=== PATIENT | female | born 1980 | race Caucasian/White ===

== ENCOUNTER 2018-09-18 10:46 | Observation (INO) | payer BC, OTHER ==
--- NOTE | 2018-09-18 11:56 | ED PDOC ---
HPI: Headache Time Seen by Provider: 09/18/18 11:32 Chief Complaint (Nursing): Headache Chief Complaint (Provider): ROMERO History Per: Patient History/Exam Limitations: no limitations Additional Complaint(s): Pt states she was at gym doing squats when she felt sudden onset back of head 2 days ago, improved after time, took Excedrin with some relief. Today went to gym again and ROMERO returned. Pain associated with photophobia and nausea. Denies fever, neck stiffness, vomiting, similar sxs in past. - Risk Factors SAH Risk Factors: Pos: Sudden Onset Of Pain, Worst Headache Of Life Past Medical History Reviewed: Nursing Documentation, Vital Signs Vital Signs: Last Vital Signs Temp 98.1 F 09/18/18 11:44 Pulse 65 09/18/18 11:44 Resp 18 09/18/18 11:44 BP 173/93 H 09/18/18 11:44 Pulse Ox 100 09/18/18 11:44 - Medical History PMH: No Chronic Diseases Denies: Chronic Kidney Disease - Surgical History Surgical History: No Surg Hx - Family History Family History: States: Unknown Family Hx - Living Arrangements Living Arrangements: With Family - Social History Current smoker - smoking cessation education provided: No Alcohol: None - Home Medications Home Medications: Ambulatory Orders Medication Instructions Recorded Acetaminophen/Oxycodone Hydr 1 tab PO Q6 PRN #24 tab 08/07/14 [Percocet 325 mg-5 mg] Ondansetron ODT [Zofran ODT] 4 mg PO 12 PRN #12 odt 08/07/14 Acetaminophen/Oxycodone Hydr 1 tab PO TID PRN #12 tab 09/17/14 [Percocet 325 mg-5 mg] Naproxen [Naprosyn] 500 mg PO BID PRN #10 tab 09/17/14 - Allergies Allergies/Adverse Reactions: Allergies Allergy/AdvReac Type Severity Reaction Status Date / Time No Known Allergies Allergy Verified 08/06/14 20:45 Review of Systems Constitutional: Negative for: Fever, Chills Eyes: Negative for: Vision Change Cardiovascular: Negative for: Chest Pain Respiratory: Negative for: Cough, Shortness of Breath Gastrointestinal: Positive for: Nausea. Negative for: Vomiting, Abdominal Pain, Diarrhea Musculoskeletal: Negative for: Neck Pain, Back Pain Skin: Negative for: Rash, Lesions Neurological: Positive for: Headache. Negative for: Weakness, Numbness, Incoordination, Change in Speech, Confusion, Seizures, Altered Mental Status, Dizziness Physical Exam - Reviewed Nursing Documentation Reviewed: Yes Vital Signs Reviewed: Yes - Physical Exam Appears: Positive for: Uncomfortable Head Exam: Positive for: ATRAUMATIC, NORMAL INSPECTION Skin: Positive for: Normal Color, Warm, Dry Eye Exam: Positive for: Normal appearance, EOMI, PERRL Neck: Positive for: Normal, Painless ROM, Supple Respiratory: Positive for: Normal Breath Sounds Neurologic/Psych: Positive for: Alert, consumer marketing analyst II-XII, Oriented. Negative for: Motor/Sensory Deficits, Aphasia, Facial Droop - Laboratory Results Result Diagrams: 09/18/18 12:00 09/18/18 12:00 - ECG O2 Sat by Pulse Oximetry: 100 Pulse Ox Interpretation: Normal - Progress Re-evaluation Time: 14:39 Condition: Improving,but remains with symptoms - Physician Consult Information Time Consulting Physican Contacted: 14:40 Physician Contacted: Adan Butcher Outcome Of Conversation: Recommends placing in observation, Depakote 1000 mg and Imitrex 80 mg, will consult. Medical Decision Making Medical Decision Makin yo female with ROMERO. - labs - CT head - CTA head/neck - Morphine - Zofran Accession No. 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 HISTORY: ROMERO COMPARISON: None available. TECHNIQUE: Axial computed tomography images were obtained through the head/brain without intravenous contrast. Radiation dose: Total exam DLP = 944.47 mGy-cm. This CT exam was performed using one or more of the following dose reduction techniques: Automated exposure control, adjustment of the mA and/or kV according to patient size, and/or use of iterative reconstruction technique. FINDINGS: HEMORRHAGE: No intracranial hemorrhage. BRAIN: No mass effect or edema. No atrophy or chronic microvascular ischemic changes.Please note that MRI with diffusion imaging is more sensitive in the detection of acute ischemic event. VENTRICLES: No hydrocephalus. CALVARIUM: Unremarkable. PARANASAL SINUSES: Unremarkable as visualized. No significant inflammatory changes. MASTOID AIR CELLS: Unremarkable as visualized. No inflammatory changes. OTHER FINDINGS: None. IMPRESSION: No acute intracranial pathology identified. Accession No. : [id number] Patient Name / ID : NELDA RAMOS / [id number] Exam Date : 09/18/2018 13:07:18 ( Approved ) Study Comment : Sex / Age : F / 37Y Creator : Lexx Cruz MD Dictator : Lexx Cruz MD Teacher Public Health : Account Executive [employer] : Lexx Cruz MD Approver2 : Report Date : 09/18/2018 14:24:13 My Comment : Date of service: 09/18/2018 PROCEDURE: CT Angiography of the Brain and Neck. HISTORY: Sudden ROMERO while at gym COMPARISON: None available. TECHNIQUE: CT angiography of the intracranial and neck arteries was performed. Coronal and sagittal maximum intensity projection reformatted images were generated. Contrast Dose: Visipaque 320, 99 cc Radiation dose: Total exam DLP = 304.11 mGy-cm. This CT exam was performed using one or more of the following dose reduction techniques: Automated exposure control, adjustment of the mA and/or kV according to patient size, and/or use of iterative reconstruction technique. FINDINGS: INTERNAL CEREBRAL ARTERIES: Unremarkable. The skull base, petrous, cavernous and supraclinoid segments are bilaterally widely patent. ANTERIOR CEREBRAL ARTERIES: Unremarkable. A1 and A2 segments are widely patent. Smaller distal branches unremarkable, as visualized. MIDDLE CEREBRAL ARTERIES: Unremarkable. M1 and M2 segments are widely patent. Perisylvian branches grossly symmetric. POSTERIOR CIRCULATION: Basilar Artery: Unremarkable. Distal Vertebral Arteries: Codominant vertebrobasilar circulation. Posterior Cerebral Arteries: Widely patent right BATTERY ASSEMBLER DRY CELL identified. Hypoplastic left P1 BATTERY ASSEMBLER DRY CELL segment. Posterior Inferior Cerebellar Arteries: Unremarkable. NECK CTA: Common Carotid arteries: The bilateral common carotid appear widely patent from their origins to their bifurcations with no significant stenosis appreciated. No evidence to suggest common carotid artery dissection. Internal Carotid arteries: No significant stenosis is appreciated throughout the cervical internal carotid artery segments bilaterally and there is no evidence of dissection either. External Carotid arteries: Appear unremarkable bilaterally. Vertebral arteries: The bilateral vertebral arteries appear normal in caliber from their origins to their distal cervical segments. No significant stenosis or definite pattern of dissection. ANEURYSM/ VASCULAR MALFORMATIONS: None appreciated. OTHER FINDINGS: None. IMPRESSION: Unremarkable CT Angiography of the Neck. Hypoplastic P1 segment left BATTERY ASSEMBLER DRY CELL with remainder of intracranial CT angiogram unremarkable. No interval malformation or aneurysm appreciable. 14:[address] Raymundo, recommends MRI with and without contrast. Disposition - Clinical Impression Clinical Impression: Intractable headache - Patient ED Disposition Is Patient to be Admitted: Yes - Disposition Disposition Time: 14:42 Condition: STABLE Forms: CareInformative (Macedonian) - Pt Status Changed To: Hospital Disposition Of: Observation - POA Present On Arrival: None
[2018-09-18 12:13] LABS: PROTHROMBIN TIME 11.3 Seconds (9.8-13.1)
[2018-09-18 12:16] LABS: BASO % 0.7 % (0.0-2.0); EOS # 0.1 K/uL (0.0-0.7); EOS % 1.6 % (0.0-4.0); HEMOGLOBIN 13.9 g/dL (12.0-16.0); LYMPH # 1.5 K/uL (1.0-4.3); LYMPH % 23.3 % (20.0-40.0); MEAN CELL VOLUME 91.3 fl (81.0-99.0); MEAN CORPUSCULAR HEMOGLOBIN 31.2 pg (27.0-31.0); MEAN CORPUSCULAR HGB CONC 34.2 g/dL (33.0-37.0); MEAN PLATELET VOLUME 8.6 fl (7.2-11.7); MONO # 0.4 K/uL (0.0-0.8); MONO % 5.9 % (0.0-10.0); NEUT # 4.5 K/uL (1.8-7.0); NEUT % 68.5 % (50.0-75.0); NRBC % 0.1 % (0.0-0.0); PARTIAL THROMBOPLASTIN TIME 33.8 Seconds (25.6-37.1); RBC 4.45 Mil/uL (3.80-5.20); WHITE BLOOD COUNT 6.6 K/uL (4.8-10.8)
[2018-09-18 12:19] LABS: ALB/GLOB RATIO 1.4 (1.0-2.1); ALBUMIN 4.4 g/dL (3.5-5.0); ALT/SGPT 39 U/L (9-52); AST/SGOT 29 U/L (14-36); BLOOD UREA NITROGEN 18 mg/dl (7-17); CALCIUM 9.4 mg/dL (8.4-10.2); GFR NON-AFRICAN AMERICAN > 60
[2018-09-18 12:35] LABS: SQUAMOUS EPITHIAL 3 /hpf (0-5); URINE BACTERIA RARE (<OCC); URINE BILIRUBIN NEGATIVE (NEGATIVE); URINE BLOOD NEGATIVE (NEGATIVE); URINE CLARITY CLEAR (Clear); URINE COLOR STRAW (YELLOW); URINE GLUCOSE (UA) NEG (Normal); URINE LEUKOCYTE ESTERASE MOD Leu/uL (Negative); URINE PROTEIN NEGATIVE (NEGATIVE); URINE UROBILINOGEN 0.2-1.0 mg/dL (0.2-1.0)
[2018-09-18] MEDS ORDERED: Iodixanol 320 MG/ML 100 ML BOTTLE IV ONE (12:50)
[2018-09-18] MEDS ORDERED: Sodium Chloride 0.9% 50 ML IV ONE (12:50)
--- NOTE | 2018-09-18 14:04 | CT ---
Date of service: 09/18/2018 PROCEDURE: CT HEAD WITHOUT CONTRAST. HISTORY: ROMERO COMPARISON: None available. TECHNIQUE: Axial computed tomography images were obtained through the head/brain without intravenous contrast. Radiation dose: Total exam DLP = 944.47 mGy-cm. This CT exam was performed using one or more of the following dose reduction techniques: Automated exposure control, adjustment of the mA and/or kV according to patient size, and/or use of iterative reconstruction technique. FINDINGS: HEMORRHAGE: No intracranial hemorrhage. BRAIN: No mass effect or edema. No atrophy or chronic microvascular ischemic changes.Please note that MRI with diffusion imaging is more sensitive in the detection of acute ischemic event. VENTRICLES: No hydrocephalus. CALVARIUM: Unremarkable. PARANASAL SINUSES: Unremarkable as visualized. No significant inflammatory changes. MASTOID AIR CELLS: Unremarkable as visualized. No inflammatory changes. OTHER FINDINGS: None. IMPRESSION: No acute intracranial pathology identified.
--- NOTE | 2018-09-18 14:28 | CT ---
Date of service: 09/18/2018 PROCEDURE: CT Angiography of the Brain and Neck. HISTORY: Sudden ROMERO while at gym COMPARISON: None available. TECHNIQUE: CT angiography of the intracranial and neck arteries was performed. Coronal and sagittal maximum intensity projection reformatted images were generated. Contrast Dose: Visipaque 320, 99 cc Radiation dose: Total exam DLP = 304.11 mGy-cm. This CT exam was performed using one or more of the following dose reduction techniques: Automated exposure control, adjustment of the mA and/or kV according to patient size, and/or use of iterative reconstruction technique. FINDINGS: INTERNAL CEREBRAL ARTERIES: Unremarkable. The skull base, petrous, cavernous and supraclinoid segments are bilaterally widely patent. ANTERIOR CEREBRAL ARTERIES: Unremarkable. A1 and A2 segments are widely patent. Smaller distal branches unremarkable, as visualized. MIDDLE CEREBRAL ARTERIES: Unremarkable. M1 and M2 segments are widely patent. Perisylvian branches grossly symmetric. POSTERIOR CIRCULATION: Basilar Artery: Unremarkable. Distal Vertebral Arteries: Codominant vertebrobasilar circulation. Posterior Cerebral Arteries: Widely patent right COMPLEX HUMAN RESOURCES MANAGER identified. Hypoplastic left P1 COMPLEX HUMAN RESOURCES MANAGER segment. Posterior Inferior Cerebellar Arteries: Unremarkable. NECK CTA: Common Carotid arteries: The bilateral common carotid appear widely patent from their origins to their bifurcations with no significant stenosis appreciated. No evidence to suggest common carotid artery dissection. Internal Carotid arteries: No significant stenosis is appreciated throughout the cervical internal carotid artery segments bilaterally and there is no evidence of dissection either. External Carotid arteries: Appear unremarkable bilaterally. Vertebral arteries: The bilateral vertebral arteries appear normal in caliber from their origins to their distal cervical segments. No significant stenosis or definite pattern of dissection. ANEURYSM/ VASCULAR MALFORMATIONS: None appreciated. OTHER FINDINGS: None. IMPRESSION: Unremarkable CT Angiography of the Neck. Hypoplastic P1 segment left COMPLEX HUMAN RESOURCES MANAGER with remainder of intracranial CT angiogram unremarkable. No interval malformation or aneurysm appreciable.
[2018-09-18] MEDS ORDERED: Valproate 1,000 MG in Sodium Chloride 0.9% 100 ML IVPB STA (14:45)
[2018-09-18] MEDS ORDERED: Gadodiamide 287 MG/ML VIAL (15ML) IV ONE (14:58)
--- NOTE | 2018-09-18 17:42 | MRI ---
Date of service: 09/18/2018 PROCEDURE: MRI BRAIN WITH AND WITHOUT CONTRAST HISTORY: Intractable ROMERO COMPARISON: None available. TECHNIQUE: Multiplanar, multisequence MR images of the brain were obtained with and without intravenous contrast enhancement. FINDINGS: HEMORRHAGE: None DWI: No evidence of an acute or early subacute infarction. BRAIN PARENCHYMA: No mass,mass effect or edema. Mild volume loss is noted. ENHANCEMENT: No abnormal intracranial enhancement. VENTRICLES: The lateral ventricles especially the occipital horn are mildly dilated. CRANIUM: Unremarkable. ORBITS: Grossly unremarkable. PARANASAL SINUSES/MASTOIDS: Clear VASCULAR SYSTEM: Skull base flow voids intact. OTHER FINDINGS: None . IMPRESSION: No evidence of acute pathology in the brain. No evidence of intracranial hemorrhage or enhancing mass lesion. Mild volume loss and mildly dilated lateral ventricles.
[2018-09-18] MEDS ORDERED: Dexamethasone 10 MG in Sodium Chloride 0.9% 50 ML IVPB SCH (20:00)
--- NOTE | 2018-09-18 20:57 | CP.PCM.HP ---
History of Present Illness - History of Present Illness History of Present Illness: 37 y/oF, PMHx Migraine 10 yrs ago, no other chronic medical condition, [facility] sudden onset of Headache on DOA with no relief. As per Pt, While at the gym on 09/16/18, onset of headache started but was relief with Advil, today 09/18/18, while at the gym, she felt that sudden onset of headache returned, worsening than last time, described as constant, pressure/tightness/stabbing type, severe intensity 7-9:10 with no relief, no associated to neck pain , notrauma. Worsening symptoms: Nausea, photophobia. Aggravated factor: Changing positions. Pt denied: Fever, chills, neck pain, vision change, numbness, vomiting, diarrhea, urinary symptoms, CP, dizziness, syncope, SOB, cough, sick contact. Head CT: Unremarkable. Head/Neck CT: Unremarkable. Brain MRI: Mild volume loss and mildly dilated lateral ventricles, otherwise unremarkable. Present on Admission - Present on Admission Any Indicators Present on Admission: No Review of Systems - Constitutional Constitutional: Headache - EENT Eyes: Other (negative) Ears: Other (negative) Nose/Mouth/Throat: Other (negative) - Cardiovascular Cardiovascular: Other (negative) - Respiratory Respiratory: Other (negative) - Gastrointestinal Gastrointestinal: Nausea - Genitourinary Genitourinary: Other (negative) - Musculoskeletal Musculoskeletal: Other (negative) - Integumentary Integumentary: Other (negative) - Neurological Neurological: Headaches (negative) - Psychiatric Psychiatric: Other (negative) - Endocrine Endocrine: Other (negative) - Hematologic/Lymphatic Hematologic: Other (negative) Past Patient History - Past Medical History & Family History Past Medical History?: No Pertinent Family History: Unknown - Past Social History Smoking Status: Never Smoked Alcohol: None Drugs: Denies Home Situation {Lives}: With Family - CARDIAC Hx Cardiac Disorders: No - PULMONARY Hx Respiratory Disorders: No - NEUROLOGICAL Hx Neurological Disorder: Yes Hx Migraine: Yes - HEENT Hx HEENT Problems: No - RENAL Hx Chronic Kidney Disease: No - ENDOCRINE/METABOLIC Hx Endocrine Disorders: No - HEMATOLOGICAL/ONCOLOGICAL Hx Blood Disorders: No Hx AIDS: No Hx Human Immunodeficiency Virus (HIV): No - INTEGUMENTARY Hx Dermatological Problems: No - MUSCULOSKELETAL/RHEUMATOLOGICAL Hx Musculoskeletal Disorders: No Hx Falls: No - GASTROINTESTINAL Hx Gastrointestinal Disorders: No - GENITOURINARY/GYNECOLOGICAL Hx Genitourinary Disorders: No - PSYCHIATRIC Hx Psychophysiologic Disorder: No Hx Substance Use: No - SURGICAL HISTORY Hx Surgeries: Yes Hx Orthopedic Surgery: Yes (right labrum repair 2.5 years ago) Other/Comment: lt. hip sx. 08/24/2014 - ANESTHESIA Hx Anesthesia: Yes Hx Anesthesia Reactions: No Hx Malignant Hyperthermia: No Has any member of the family had a problem w/ anesthesia?: No Meds Allergies/Adverse Reactions: Allergies Allergy/AdvReac Type Severity Reaction Status Date / Time No Known Allergies Allergy Verified 08/06/14 20:45 Physical Exam - Constitutional Appears: No Acute Distress - Head Exam Additional comments: Occipital tenderness - Eye Exam Eye Exam: PERRL - ENT Exam ENT Exam: Normal Exam - Neck Exam Neck exam: Positive for: Tenderness - Respiratory Exam Respiratory Exam: Clear to Auscultation Bilateral - Cardiovascular Exam Cardiovascular Exam: REGULAR RHYTHM - GI/Abdominal Exam GI & Abdominal Exam: Normal Bowel Sounds, Soft - Extremities Exam Extremities exam: Positive for: normal inspection - Back Exam Back exam: NORMAL INSPECTION - Neurological Exam Neurological exam: Alert, Oriented x3 Additional comments: No motor/sensory deficit. - Psychiatric Exam Psychiatric exam: Anxious - Skin Skin Exam: Normal Color, Warm Results - Vital Signs Recent Vital Signs: Last Vital Signs Temp 98.1 F 09/18/18 11:44 Pulse 53 L 09/18/18 18:02 Resp 16 09/18/18 18:02 BP 138/81 09/18/18 18:02 Pulse Ox 98 09/18/18 18:05 reviewed Fatimah - Labs Result Diagrams: 09/20/18 07:30 09/19/18 06:00 Labs: Laboratory Results - last 24 hr 09/18/18 09/18/18 09/18/18 12:00 12:00 12:00 WBC 6.6 RBC 4.45 Hgb 13.9 Hct 40.6 MCV 91.3 MCH 31.2 H MCHC 34.2 RDW 13.0 Plt Count 282 MPV 8.6 Neut % (Auto) 68.5 Lymph % (Auto) 23.3 [place] % (Auto) 5.9 Eos % (Auto) 1.6 Baso % (Auto) 0.7 Neut # (Auto) 4.5 Lymph # (Auto) 1.5 [place] # (Auto) 0.4 Eos # (Auto) 0.1 Baso # (Auto) 0.0 PT 11.3 INR 1.0 APTT 33.8 Sodium 141 Potassium 4.2 Chloride 105 Carbon Dioxide 27 Anion Gap 13 BUN 18 H Creatinine 0.6 L Est GFR ( Amer) > 60 Est GFR (Non-Af Amer) > 60 Random Glucose 97 Calcium 9.4 Total Bilirubin 0.4 AST 29 ALT 39 Alkaline Phosphatase 50 Total Protein 7.6 Albumin 4.4 Globulin 3.2 Albumin/Globulin Ratio 1.4 Urine Color Urine Clarity Urine pH Ur Specific [place] Urine Protein Urine Glucose (UA) Urine Ketones Urine Blood Urine Nitrate Urine Bilirubin Urine Urobilinogen Ur Leukocyte Esterase Urine RBC (Auto) Urine Microscopic WBC Ur Squamous Epith Cells Urine Bacteria 09/18/18 12:22 WBC RBC Hgb Hct MCV MCH MCHC RDW Plt Count MPV Neut % (Auto) Lymph % (Auto) [place] % (Auto) Eos % (Auto) Baso % (Auto) Neut # (Auto) Lymph # (Auto) [place] # (Auto) Eos # (Auto) Baso # (Auto) PT INR APTT Sodium Potassium Chloride Carbon Dioxide Anion Gap BUN Creatinine Est GFR ( Amer) Est GFR (Non-Af Amer) Random Glucose Calcium Total Bilirubin AST ALT Alkaline Phosphatase Total Protein Albumin Globulin Albumin/Globulin Ratio Urine Color Straw Urine Clarity Clear Urine pH 7.0 Ur Specific [place] 1.006 Urine Protein Negative Urine Glucose (UA) Neg Urine Ketones Negative Urine Blood Negative Urine Nitrate Negative Urine Bilirubin Negative Urine Urobilinogen 0.2-1.0 Ur Leukocyte Esterase Mod Urine RBC (Auto) 1 Urine Microscopic WBC 3 Ur Squamous Epith Cells 3 Urine Bacteria Rare reviewed J.P. - Impressions Impression: Head/Neck CT: Reviewed J.P. - Imaging and Cardiology CT scan - head Status: Report reviewed by me (Fatimah) MRI - head Status: Report reviewed by me (Fatimah) Assessment & Plan (1) Intractable headache Status: Acute (2) Cervical pain Status: Acute - Assessment and Plan (Free Text) Plan: Sed Rate, VANESSA, REMA, EKG, continue Morphine, Zofran, Neurology consult. - Date & Time Date: 09/18/18 Time: 19:30
[2018-09-19 06:52] LABS: ALB/GLOB RATIO 1.4 (1.0-2.1); ALBUMIN 4.3 g/dL (3.5-5.0); ALT/SGPT 33 U/L (9-52); AST/SGOT 26 U/L (14-36); BLOOD UREA NITROGEN 20 mg/dl (7-17); CALCIUM 9.5 mg/dL (8.4-10.2); GFR NON-AFRICAN AMERICAN > 60; HDL CHOLESTEROL 80 MG/DL (30-70)
[2018-09-19 06:58] LABS: T4 6.93 ug/dl (5.5-11.0)
[2018-09-19 07:02] LABS: LDL CHOLESTEROL 132 mg/dL (0-129)
--- NOTE | 2018-09-19 11:15 | CARD ---
APPROVED REPORT Date of service: 09/19/2018 EKG Measurement Heart [id number] <Conclusion> Normal sinus rhythm Normal ECG
--- NOTE | 2018-09-19 17:15 | CP.PCM.PN ---
Subjective - Date & Time of Evaluation Date of Evaluation: 09/19/18 Time of Evaluation: 12:50 - Subjective Subjective: F/U Headache vomited earlier,headache improved , no photophoia Objective - Vital Signs/Intake and Output Vital Signs (last 24 hours): Temp Pulse Resp BP Pulse Ox 99.6 F 76 20 107/61 98 09/19/18 12:20 09/19/18 12:20 09/19/18 12:20 09/19/18 08:20 09/19/18 12:20 - Medications Medications: Current Medications Hydromorphone HCl (Dilaudid) 1 mg IVP Q4 PRN PRN Reason: Pain, moderate (4-7) Morphine Sulfate (Morphine) 2 mg IVP Q4 PRN PRN Reason: Pain, moderate (4-7) Last Admin: 09/19/18 15:21 Dose: 2 mg Ondansetron HCl (Zofran Inj) 4 mg IVP Q4 PRN PRN Reason: Nausea/Vomiting Last Admin: 09/19/18 15:21 Dose: 4 mg - Labs Labs: 09/18/18 12:00 09/19/18 06:00 PT 11.3 Seconds (9.8-13.1) 09/18/18 12:00 INR 1.0 09/18/18 12:00 APTT 33.8 Seconds (25.6-37.1) 09/18/18 12:00 - Constitutional Appears: No Acute Distress - Head Exam Additional comments: occipital tenderness - Eye Exam Eye Exam: PERRL - ENT Exam ENT Exam: Normal Exam - Neck Exam Neck Exam: Normal Inspection, Tenderness - Respiratory Exam Respiratory Exam: NORMAL BREATHING PATTERN - Cardiovascular Exam Cardiovascular Exam: REGULAR RHYTHM - GI/Abdominal Exam GI & Abdominal Exam: Soft, Normal Bowel Sounds - Extremities Exam Extremities Exam: Normal Inspection - Back Exam Back Exam: NORMAL INSPECTION - Neurological Exam Neurological Exam: Alert, Oriented x3 Additional comments: no focal motor/sensory deficit - Psychiatric Exam Psychiatric exam: Anxious - Skin Skin Exam: Normal Color, Warm Assessment and Plan (1) Cervical pain Status: Acute (2) Intractable headache Status: Acute (3) High cholesterol Status: Chronic - Assessment and Plan (Free Text) Plan: Morphine, Decadron, Zofran, f/u Neurology
[2018-09-19] MEDS ORDERED: Dexamethasone 10 MG in Sodium Chloride 0.9% 50 ML IVPB ONE (17:19)
--- NOTE | 2018-09-19 21:58 | CP.PCM.CON ---
History of Present Illness - History of Present Illness History of Present Illness: Neurology consult dictated. Please see report for full details. in brief, I feel that miss gavin has a severe mscle spasm and/or herniated disc that is exacerbating this new onset headache. CTA head and neck were negative for sah, and MRI brain does not show mass lesion. PLan: 1. flexaril 10 mg po now 2. tylenol 600 mg po now 3. lidocaine patch will follow Thank you Dr. howard Past Patient History - Past Medical History & Family History Past Medical History?: No - Past Social History Smoking Status: Never Smoked Alcohol: None Drugs: Denies Home Situation {Lives}: With Family - CARDIAC Hx Cardiac Disorders: No - PULMONARY Hx Respiratory Disorders: No - NEUROLOGICAL Hx Neurological Disorder: Yes Hx Migraine: Yes - HEENT Hx HEENT Problems: No - RENAL Hx Chronic Kidney Disease: No - ENDOCRINE/METABOLIC Hx Endocrine Disorders: No - HEMATOLOGICAL/ONCOLOGICAL Hx Blood Disorders: No Hx AIDS: No Hx Human Immunodeficiency Virus (HIV): No - INTEGUMENTARY Hx Dermatological Problems: No - MUSCULOSKELETAL/RHEUMATOLOGICAL Hx Musculoskeletal Disorders: No Hx Falls: No - GASTROINTESTINAL Hx Gastrointestinal Disorders: No - GENITOURINARY/GYNECOLOGICAL Hx Genitourinary Disorders: No - PSYCHIATRIC Hx Psychophysiologic Disorder: No Hx Substance Use: No - SURGICAL HISTORY Hx Surgeries: Yes Hx Orthopedic Surgery: Yes (right labrum repair 2.5 years ago) Other/Comment: lt. hip sx. 08/24/2014 - ANESTHESIA Hx Anesthesia: Yes Hx Anesthesia Reactions: No Hx Malignant Hyperthermia: No Has any member of the family had a problem w/ anesthesia?: No Meds Allergies/Adverse Reactions: Allergies Allergy/AdvReac Type Severity Reaction Status Date / Time No Known Allergies Allergy Verified 08/06/14 20:45 - Medications Medications: Current Medications Hydromorphone HCl (Dilaudid) 1 mg IVP Q4 PRN PRN Reason: Pain, moderate (4-7) Morphine Sulfate (Morphine) 2 mg IVP Q4 PRN PRN Reason: Pain, moderate (4-7) Last Admin: 09/19/18 15:21 Dose: 2 mg Ondansetron HCl (Zofran Inj) 4 mg IVP Q4 PRN PRN Reason: Nausea/Vomiting Last Admin: 09/19/18 15:21 Dose: 4 mg Results - Vital Signs Recent Vital Signs: Last Vital Signs Temp 97.9 F 09/19/18 17:00 Pulse 79 09/19/18 17:00 Resp 18 09/19/18 17:00 BP 109/68 09/19/18 17:00 Pulse Ox 100 09/19/18 17:00 - Labs Result Diagrams: 09/18/18 12:00 09/19/18 06:00 Labs: Laboratory Results - last 24 hr 09/19/18 09/19/18 06:00 06:00 ESR 5 Sodium 140 Potassium 4.6 Chloride 106 Carbon Dioxide 24 Anion Gap 15 BUN 20 H Creatinine 0.7 Est GFR ( Amer) > 60 Est GFR (Non-Af Amer) > 60 Random Glucose 146 H Calcium 9.5 Total Bilirubin 0.7 AST 26 ALT 33 Alkaline Phosphatase 49 Total Protein 7.5 Albumin 4.3 Globulin 3.2 Albumin/Globulin Ratio 1.4 Triglycerides 63 Cholesterol 229 H LDL Cholesterol Direct 132 H HDL Cholesterol 80 H Thyroxine (T4) 6.93 TSH 3rd Generation 0.64
[2018-09-20 06:07] VITALS: RESP 20
[2018-09-20 07:57] LABS: HEMOGLOBIN 13.8 g/dL (12.0-16.0); MEAN CELL VOLUME 91.5 fl (81.0-99.0); MEAN CORPUSCULAR HGB CONC 33.9 g/dL (33.0-37.0); RBC 4.45 Mil/uL (3.80-5.20); RED CELL DISTRIBUTION WIDTH 13.3 % (11.5-14.5)
--- NOTE | 2018-09-20 12:18 | MRI ---
Date of service: 09/20/2018 PROCEDURE: MR CERVICAL SPINE WITHOUT CONTRAST HISTORY: herniation COMPARISON: None available. TECHNIQUE: Multiecho multiplanar sequences were performed through the cervical spine without the use of intravenous contrast. FINDINGS: There is normal alignment of the cervical vertebral bodies. There is straightening of the cervical spine with loss of normal cervical lordosis. There is no acute fracture or spondylolisthesis. Bone marrow signal is within normal limits. The craniocervical junction is normal. The atlantoaxial joint is normal. The cervical cord is normal in contour, caliber and has normal intrinsic signal. C2-C3: No disc herniation, spinal canal stenosis or neural foraminal narrowing. C3-C4: No disc herniation, spinal canal stenosis or neural foraminal narrowing. C4-C5: Broad-based disc osteophyte complex with superimposed small right posterolateral disc protrusion without central spinal canal stenosis. Asymmetric right uncovertebral joint hypertrophy in conjunction with mild facet arthropathy result in mild right neural foraminal narrowing. C5-C6: No disc herniation, spinal canal stenosis or neural foraminal narrowing. C6-C7: Small central disc protrusion without spinal canal stenosis or neural foraminal narrowing. C7-T1: No disc herniation, spinal canal stenosis or neural foraminal narrowing. OTHER FINDINGS: The paraspinous soft tissues are normal P IMPRESSION: Mild multilevel degenerative disc disease, worse at C4-5 with a broad-based disc osteophyte complex, small right posterolateral disc protrusion and mild right neural foraminal narrowing. No central spinal canal stenosis.
--- NOTE | 2018-09-20 16:15 | CP.PCM.DIS ---
Provider - Provider Date of Admission: 09/18/18 14:43 Attending physician: Bo Raymundo MD Diagnosis - Discharge Diagnosis (1) Cervical pain Status: Acute (2) Intractable headache Status: Acute (3) High cholesterol Status: Chronic Hospital Course - Lab Results Lab Results: Most Recent Lab Values WBC 8.0 K/uL (4.8-10.8) 09/20/18 07:30 RBC 4.45 Mil/uL (3.80-5.20) 09/20/18 07:30 Hgb 13.8 g/dL (12.0-16.0) 09/20/18 07:30 Hct 40.7 % (34.0-47.0) 09/20/18 07:30 MCV 91.5 fl (81.0-99.0) 09/20/18 07:30 MCH 31.0 pg (27.0-31.0) 09/20/18 07:30 MCHC 33.9 g/dL (33.0-37.0) 09/20/18 07:30 RDW 13.3 % (11.5-14.5) 09/20/18 07:30 Plt Count 293 K/uL (130-400) 09/20/18 07:30 MPV 8.6 fl (7.2-11.7) 09/18/18 12:00 Neut % (Auto) 68.5 % (50.0-75.0) 09/18/18 12:00 Lymph % (Auto) 23.3 % (20.0-40.0) 09/18/18 12:00 [place]ock % (Auto) 5.9 % (0.0-10.0) 09/18/18 12:00 Eos % (Auto) 1.6 % (0.0-4.0) 09/18/18 12:00 Baso % (Auto) 0.7 % (0.0-2.0) 09/18/18 12:00 Neut # (Auto) 4.5 K/uL (1.8-7.0) 09/18/18 12:00 Lymph # (Auto) 1.5 K/uL (1.0-4.3) 09/18/18 12:00 Bullock # (Auto) 0.4 K/uL (0.0-0.8) 09/18/18 12:00 Eos # (Auto) 0.1 K/uL (0.0-0.7) 09/18/18 12:00 Baso # (Auto) 0.0 K/uL (0.0-0.2) 09/18/18 12:00 ESR 5 mm/hr (0-20) 09/19/18 06:00 PT 11.3 Seconds (9.8-13.1) 09/18/18 12:00 INR 1.0 09/18/18 12:00 APTT 33.8 Seconds (25.6-37.1) 09/18/18 12:00 Sodium 140 mmol/l (132-148) 09/19/18 06:00 Potassium 4.6 MMOL/L (3.6-5.0) 09/19/18 06:00 Chloride 106 mmol/L (98-107) 09/19/18 06:00 Carbon Dioxide 24 mmol/L (22-30) 09/19/18 06:00 Anion Gap 15 (10-20) 09/19/18 06:00 BUN 20 mg/dl (7-17) H 09/19/18 06:00 Creatinine 0.7 mg/dl (0.7-1.2) 09/19/18 06:00 Est GFR ( Amer) > 60 09/19/18 06:00 Est GFR (Non-Af Amer) > 60 09/19/18 06:00 Random Glucose 146 mg/dL (65-105) H 09/19/18 06:00 Calcium 9.5 mg/dL (8.4-10.2) 09/19/18 06:00 Total Bilirubin 0.7 mg/dl (0.2-1.3) 09/19/18 06:00 AST 26 U/L (14-36) 09/19/18 06:00 ALT 33 U/L (9-52) 09/19/18 06:00 Alkaline Phosphatase 49 U/L (38-126) 09/19/18 06:00 Total Protein 7.5 G/DL (6.3-8.2) 09/19/18 06:00 Albumin 4.3 g/dL (3.5-5.0) 09/19/18 06:00 Globulin 3.2 gm/dL (2.2-3.9) 09/19/18 06:00 Albumin/Globulin Ratio 1.4 (1.0-2.1) 09/19/18 06:00 Triglycerides 63 mg/DL (0-149) 09/19/18 06:00 Cholesterol 229 mg/dL (0-199) H 09/19/18 06:00 LDL Cholesterol Direct 132 mg/dL (0-129) H 09/19/18 06:00 HDL Cholesterol 80 MG/DL (30-70) H 09/19/18 06:00 Thyroxine (T4) 6.93 ug/dl (5.5-11.0) 09/19/18 06:00 TSH 3rd Generation 0.64 mIU/ML (0.46-4.68) 09/19/18 06:00 Urine Color Straw (YELLOW) 09/18/18 12:22 Urine Clarity Clear (Clear) 09/18/18 12:22 Urine pH 7.0 (5.0-8.0) 09/18/18 12:22 Ur Specific [place] 1.006 (1.003-1.030) 09/18/18 12:22 Urine Protein Negative mg/dL (NEGATIVE) 09/18/18 12:22 Urine Glucose (UA) Neg mg/dL (Normal) 09/18/18 12:22 Urine Ketones Negative mg/dL (NEGATIVE) 09/18/18 12:22 Urine Blood Negative (NEGATIVE) 09/18/18 12:22 Urine Nitrate Negative (NEGATIVE) 09/18/18 12:22 Urine Bilirubin Negative (NEGATIVE) 09/18/18 12:22 Urine Urobilinogen 0.2-1.0 mg/dL (0.2-1.0) 09/18/18 12:22 Ur Leukocyte Esterase Mod Sergio/uL (Negative) 09/18/18 12:22 Urine RBC (Auto) 1 /hpf (0-3) 09/18/18 12:22 Urine Microscopic WBC 3 /hpf (0-5) 09/18/18 12:22 Ur Squamous Epith Cells 3 /hpf (0-5) 09/18/18 12:22 Urine Bacteria Rare (<OCC) 09/18/18 12:22 Discharge Exam - Head Exam Head Exam: NORMAL INSPECTION Discharge Plan - Follow Up Plan Condition: STABLE Disposition: HOME/ ROUTINE
[2018-09-20 16:20] VITALS: BP 115/62; PULSE 57; TEMP 98; O2SAT 99
[2018-09-20] MEDS ORDERED: Dexamethasone 10 MG in Sodium Chloride 0.9% 50 ML IVPB ONE ×2 (16:50→17:17)
== END 2018-09-20 16:45 | disposition home or self-care (01) ==
LOC: H.ER 10:46 → H.ERHOLD 14:43 → H.PEDS 18:00
PROVIDERS: ADMIT Internal Medicine Pulmonary Disease; ATTEND Internal Medicine Pulmonary Disease
DX: G43.909 Migraine, unspecified, not intractable, without status migrainosus (principal); E78.00 Pure hypercholesterolemia, unspecified; M54.2 Cervicalgia; R11.2 Nausea with vomiting, unspecified; H53.149 Visual discomfort, unspecified
CPT/HCPCS: 36415; 70450; 70496; 70498; 70553; 72141; 80053; 80061; 81003; 81025; 83520; 84436; 84443; 85025; 85027; 85610; 85651; 85730; 86038; 93005; 96372; 99285; A9579; G0378; J1100; J2270; J2405; J3030; Q9967